=== PATIENT | male | born 1955 | race Hispanic/Latino ===

== ENCOUNTER 2021-02-02 16:27 | Inpatient (IN) | payer MEDICARE ==
[2021-02-02 16:52] VITALS: BMI 30.7
[2021-02-02] MEDS ORDERED: HumaLOG 300 UNITS/3 ML VIAL SC PRN ×2 (17:30)
[2021-02-02] MEDS ORDERED: Dextrose 5% in Water 1,000 ML IV PRN (17:30)
[2021-02-02] MEDS ORDERED: Dextrose 50% Abboject 50 ML SYRINGE IVP PRN (17:30)
[2021-02-02] MEDS: TYLENOL PO SCH (20:55)
[2021-02-02] MEDS: Trospium 20 MG TAB PO SCH (21:25)
[2021-02-02] MEDS: traZODone HCl 50 MG TAB PO SCH (21:25)
[2021-02-02] MEDS: Acetaminophen 325 MG TAB PO PRN (21:25)
[2021-02-02] MEDS: Cyclobenzaprine 10 MG TAB PO PRN (23:05)
[2021-02-03] MEDS: Acetaminophen 325 MG TAB PO PRN (05:41)
[2021-02-03] MEDS: Cyclobenzaprine 10 MG TAB PO PRN (05:42)
[2021-02-03 05:53] LABS: Anion Gap 12 mmol/L (10-20); BUN (Urea Nitrogen) 13 mg/dL (8.4-25.7); Calc. Creatinine Clearance 110 mL/min (70-130); Calcium 10.1 mg/dL (7.8-10.44); Carbon Dioxide 24 mmol/L (23-31); Chloride 106 mmol/L (98-107); Glucose 95 mg/dL (80-115); Potassium 4.2 mmol/L (3.5-5.1); Sodium 138 mmol/L (136-145)
[2021-02-03 05:59] LABS: #Basophils 0.2 thou/uL (0.0-0.2); #Eosinphils 0.4 thou/uL (0.0-0.7); #Lymphocytes 4.5 thou/uL (1.20-3.40); #Monocytes 1.2 thou/uL (0.11-0.59); %Basophils 1.7 % (0.0-1.0); %Eosinophils 3.9 % (0.0-10.0); %Lymphocytes 43.6 % (21.0-51.0); %Monocytes 11.8 % (0.0-10.0); Hemoglobin 12.9 g/dL (14.0-18.0); Mean Corpuscular HGB CONC 29.6 g/dL (32.0-36.0); Mean Corpuscular Hemoglobin 27.9 pg (27.0-31.0); Mean Corpuscular Volume 94.4 fL (78.0-98.0); Mean Platelet Volume 7.9 fL (7.4-10.4); Platelet Count 383 thou/uL (130-400); RBC Distribution Width 12.5 % (11.5-14.5); Red Blood Cell (RBC) Count 4.63 mill/uL (4.70-6.10); White Blood Cell (WBC) Count 10.3 thou/uL (4.8-10.8)
[2021-02-03 06:01] LABS: RBC Morphology Normal
[2021-02-03] MEDS: metFORMIN 500 MG TAB PO SCH (09:01)
[2021-02-03] MEDS: Amlodipine 5 MG TAB PO SCH (09:01)
[2021-02-03] MEDS: Trospium 20 MG TAB PO SCH ×2 (09:01→20:40)
[2021-02-03] MEDS: Loratadine 10 MG TAB PO SCH (09:01)
[2021-02-03] MEDS: TYLENOL PO SCH ×2 (09:10→20:40)
[2021-02-03] MEDS ORDERED: Cyclobenzaprine 10 MG TAB ONE (11:15)
[2021-02-03] MEDS ORDERED: Acetaminophen 325 MG TAB ONE (11:16)
[2021-02-03] MEDS: HYDROcodone/Acetaminophen 5/325 mg Tablet PO PRN ×2 (14:43→20:39)
[2021-02-03] MEDS: Transdermal Patch Removal TOP SCH (16:22)
[2021-02-03] MEDS: traZODone HCl 50 MG TAB PO SCH (20:39)
[2021-02-04] MEDS: Cyclobenzaprine 10 MG TAB PO PRN ×2 (05:16→12:16)
[2021-02-04] MEDS: HYDROcodone/Acetaminophen 5/325 mg Tablet PO PRN ×3 (05:16→21:31)
[2021-02-04] MEDS: Amlodipine 5 MG TAB PO SCH (09:17)
[2021-02-04] MEDS: metFORMIN 500 MG TAB PO SCH (09:17)
[2021-02-04] MEDS: TYLENOL PO SCH ×2 (09:19→22:05)
[2021-02-04] MEDS: Loratadine 10 MG TAB PO SCH (09:19)
[2021-02-04] MEDS: Trospium 20 MG TAB PO SCH ×2 (09:19→21:31)
[2021-02-04] MEDS: Acetaminophen 325 MG TAB PO PRN (12:15)
[2021-02-04] MEDS: traZODone HCl 50 MG TAB PO SCH (21:30)
[2021-02-05] MEDS: Acetaminophen 325 MG TAB PO PRN ×2 (02:13→08:30)
[2021-02-05] MEDS: HYDROcodone/Acetaminophen 5/325 mg Tablet PO PRN ×4 (03:10→21:02)
[2021-02-05] MEDS: Amlodipine 5 MG TAB PO SCH (08:28)
[2021-02-05] MEDS: metFORMIN 500 MG TAB PO SCH (08:28)
[2021-02-05] MEDS: TYLENOL PO SCH ×2 (08:29→21:00)
[2021-02-05] MEDS: Trospium 20 MG TAB PO SCH ×2 (08:29→20:57)
[2021-02-05] MEDS: Loratadine 10 MG TAB PO SCH (08:29)
[2021-02-05] MEDS: Gabapentin 100 MG CAP PO SCH ×2 (14:36→20:57)
[2021-02-05] MEDS: traZODone HCl 50 MG TAB PO SCH (20:57)
[2021-02-06] MEDS: HYDROcodone/Acetaminophen 5/325 mg Tablet PO PRN ×4 (04:10→21:40)
[2021-02-06] MEDS: Gabapentin 100 MG CAP PO SCH ×3 (08:50→21:36)
[2021-02-06] MEDS: Trospium 20 MG TAB PO SCH ×2 (08:50→21:36)
[2021-02-06] MEDS: Amlodipine 5 MG TAB PO SCH (08:52)
[2021-02-06] MEDS: Loratadine 10 MG TAB PO SCH (08:52)
[2021-02-06] MEDS: metFORMIN 500 MG TAB PO SCH (08:52)
[2021-02-06] MEDS: Acetaminophen 325 MG TAB PO PRN (08:56)
[2021-02-06] MEDS: TYLENOL PO SCH ×2 (12:05→21:38)
[2021-02-06] MEDS: Transdermal Patch Removal TOP SCH (16:05)
[2021-02-06] MEDS: traZODone HCl 50 MG TAB PO SCH (21:36)
[2021-02-07] MEDS: HYDROcodone/Acetaminophen 5/325 mg Tablet PO PRN ×2 (05:03→11:05)
[2021-02-07] MEDS: Acetaminophen 325 MG TAB PO PRN (08:50)
[2021-02-07] MEDS: Amlodipine 5 MG TAB PO SCH (08:52)
[2021-02-07] MEDS: metFORMIN 500 MG TAB PO SCH (08:52)
[2021-02-07] MEDS: Trospium 20 MG TAB PO SCH (08:52)
[2021-02-07] MEDS: Loratadine 10 MG TAB PO SCH (08:53)
[2021-02-07] MEDS: Gabapentin 100 MG CAP PO SCH (08:54)
[2021-02-07] MEDS: TYLENOL PO SCH (08:54)
[2021-02-07 15:11] VITALS: BP 136/77; TEMP 98.6
== END 2021-02-07 14:30 | disposition home or self-care (01) | DRG 948 ==
LOC: NAV ACUTE 16:27
PROVIDERS: ADMIT Internal Medicine; ATTEND Internal Medicine
DX: R53.81 Other malaise (principal); I10 Essential (primary) hypertension; E78.5 Hyperlipidemia, unspecified; E11.9 Type 2 diabetes mellitus without complications; M19.90 Unspecified osteoarthritis, unspecified site; J30.9 Allergic rhinitis, unspecified; M62.838 Other muscle spasm; N32.81 Overactive bladder; Z98.890 Other specified postprocedural states; Z90.81 Acquired absence of spleen; Z79.84 Long term (current) use of oral hypoglycemic drugs
CPT/HCPCS: 36416; 72050; 80048; 85025